=== PATIENT | female | born 2000 | race Two or more races ===

== ENCOUNTER 2021-05-31 22:39 | Emergency (ER) | payer OTHER ==
[~2021-05-31] VITALS: Ht 167.6 cm; Wt 68.0 kg
[2021-05-31 23:16] LABS: Urine Bacteria FEW /hpf (None Seen); Urine Blood 3+ /uL (Negative); Urine Specific Gravity 1.027 (1.001-1.035); Urine WBC 3 /hpf (0 - 5)
[2021-05-31 23:51] VITALS: BP 134/70
== END 2021-06-01 00:08 | disposition left against medical advice (07) ==
LOC: ER 22:43
DX: R10.31 Right lower quadrant pain (principal); Z53.21 Procedure and treatment not carried out due to patient leaving prior to being seen by health care provider
CPT/HCPCS: 81001